=== PATIENT | female | born 1990 | race Caucasian/White ===

== ENCOUNTER 2022-10-16 06:52 | Outpatient (CLI) | payer OTHER, SELFPAY ==
[2022-10-16] VITALS (7 sets, daily range): BP systolic 111–132; BP diastolic 82–93; PULSE 93–120; RESP 16–21; TEMP 36.7–37.1; O2SAT 95–99; BMI 49.6
--- NOTE | 2022-10-16 07:00 | XACV_ITS ---
Exam Room: 2 Ht: 165 cm Wt: 135 kg BSA: 2.57 m2 Gender: Female : 1990 Exam Priority: Routine Procedure(s): Procedure Description: Diagnostic procedure Diagnostic Cath Status: Elective Diagnostic Findings * 32-year-old woman with nuclear stress test showing modest ischemia in anterior wall. She is here for coronary angiogram for further risk stratification. * No disease noted in the Left Main, Left Anterior Descending, Ramus intermedius, Right, or Circumflex coronary arteries. * Coronary angiography shows co dominance. Conclusions 1. No disease noted in the Left Main, Left Anterior Descending, Ramus intermedius, Right, or Circumflex coronary arteries. Recommendations * Continue current medical management and risk factor modification. Left Ventriculography Findings: * Left Ventriculogram not performed to minimize contrast use. Pressures Phase:Rest AO : 118 / 93 ( 104 ) @ 9:58:00 AM 96 / 84 ( 90 ) @ 10:01:00 AM 104 / 92 ( 99 ) @ 10:05:00 AM Clinical Evaluation EBL: 5mL-10mL Procedural Details Procedure Consent Obtained. Admit Source: Out Patient. Pre-Procedure Time Out. Identified patient by full name and date of as verbalized by the patient/guarantor. Does the consent match the physician's order: Yes. Accurate & Complete Informed Consent: Yes. Inpatient/Outpatient History & Physical on Chart: Yes. If H&P is completed, is and addenduem needed: No; If yes, is the addendum complete: N/A. Visualize and Verify Site with Patient/Guarantor: N/A. Relevant Radiology Images available: Yes. The risks, benefits, and alternatives of sedation and/or procedure were discussed by physician. The patient agrees to continue. Baseline sample Acquired. HR: 131 BPM. Procedure started. [facility] Clinical Fraility Score: 3: Managing Well. Shirt Folder Indications: Worsening Angina. Chest Pain Symptom Assessment: Atypical Angina. Correct patient, site and procedure confirmed by cath team. Current diagnosis: Chest Pain. PERRLA. Strong, equal hand .net programmer bilaterally. Lungs clear x 5 lobes. IV Site on Arrival: 20 gauge in the left anticubital. IV Fluids: 0.9% NaCl at KVO. 0 mL infused prior to chemical laboratory assistant. Pre Procedural Pulses: bilateral radial was 3+. Pre Procedural Pulses: bilateral posterior tibial was 3+. Pre Procedural Pulses: bilateral dorsalis pedis was 3+. Oxygen started at 2liters/min via nasal canula. right groin was prepped with chloroprep then draped in the usual sterile fashion. right groin was prepped with chloroprep then draped in the usual sterile fashion. Physician notified. Baseline sample Acquired. HR: 119 BPM. Baseline sample Acquired. HR: 122 BPM. Physician arrived. Physician scrubbed in. Immediate Pre-Procedure Time Out. Correct Patient: Yes; Correct Procedure: Yes; Correct Site: Yes; Correct Patient Position: Yes; Correct Supplies: Yes; Dried Flammable Prep: Yes; Blood Products Available: N/A;. Lidocaine 1% infiltrated to the right radial. An attempt to gain access to the right radial artery was unsuccessful. Manual pressure was held as needed to stop the bleeding. Arterial access obtained. A 5 telugu TIG catheter in over wire. Multiple views taken of left coronary artery. Catheter redirected to the RCA. Multiple views taken of right coronary artery. Catheter removed over the exchange wire. A TR Band was successful obtaining hemostatsis at the Right Radial artery insertion site. Physician scrubbed out. Physician review of cine films. Post Procedure: Pulses reassessed and unchanged. PERRLA. Strong, equal hand .net programmer bilaterally. Fluoro Time (Diagnostic) : 785:53 min. Estimated blood loss: 5mL-10mL. Responsiveness - Normal response to verbal stimuli; alert and oriented, PERRLA. Airway - Unaffected, no intervention required; spontaneous ventilation. Circulation: W/N/L, pulses unchanged. Nausea/Vomiting: No. Procedure completed. Patient transferred by wheelchair to CPRU. Vital chart was stopped. Access Site Site: Right Radial artery Sheath Size: 6 Fr Hemostasis Method: TR Band Hemostasis Success: Successful Procedure Medications Start: 8:41 AM Stop: 8:41 AM Medication: Versed Amount: 1 mg Route: I.V. Start: 8:42 AM Stop: 8:42 AM Medication: Fentanyl Amount: 50 mcg Route: I.V. Start: 8:45 AM Stop: 8:45 AM Medication: Versed Amount: 1 mg Route: I.V. Start: 8:46 AM Stop: 8:46 AM Medication: Fentanyl Amount: 25 mcg Route: I.V. Start: 8:48 AM Stop: 8:48 AM Medication: Versed Amount: 1 mg Route: I.V. Start: 8:52 AM Stop: 8:52 AM Medication: Versed Amount: 1 mg Route: I.V. Start: 8:53 AM Stop: 8:53 AM Medication: Fentanyl Amount: 25 mcg Route: I.V. Start: 8:54 AM Stop: 8:54 AM Medication: Nitrogylcerin Amount: 50 mcg Route: S.Q. Start: 8:56 AM Stop: 8:56 AM Medication: Nitrogylcerin Amount: 200 mcg Route: I.A. Start: 8:59 AM Stop: 8:59 AM Medication: Heparin Amount: 5000 units Route: I.V. Start: 9:03 AM Stop: 9:03 AM Medication: Nitrogylcerin Amount: 200 mcg Route: I.A. Start: 9:04 AM Stop: 9:04 AM Medication: Versed Amount: 1 mg Route: I.V. I, the attending physician, have reviewed and verified all procedure medications. Yes, all medications given per verbal order History/Risk Factors Hypertension: No Dyslipidemia: No Peripheral Arterial Disease (PAD): No Myocardial Infarction (MO): No Obesity: Yes Renal Disease: No Tobacco Use: Never Prior Interventions PCI: No CABG: No Valve Surgery: No Report Signatures Finalized by Adriana Putnam MD on 10/20/2022 05:24 PM
[2022-10-16] MEDS: diphenhydrAMINE 50 mg Capsule PO (07:46)
[2022-10-16 07:49] LABS: Basophils % 0.4 %; Eosinophils # 0.1 10^3/uL (0.0-0.8); Eosinophils % 0.6 %; Hematocrit 39.7 % (37.0-47.0); Hemoglobin 13.3 g/dL (11.5-15.3); Lymphocytes # 1.7 10^3/uL (0.8-4.8); Lymphocytes % 19.9 %; Mean Corpuscular HGB Conc 33.5 g/dL (30.0-36.0); Mean Corpuscular Hemoglobin 29.8 pg (28.0-34.0); Mean Platelet Volume 10.1 fL (7.4-10.4); Monocytes # 0.6 10^3/uL (0.2-0.9); Monocytes % 7.3 %; Neutrophils # 6.01 10^3/uL (1.8-7.7); Neutrophils % 71.6 %; Nucleated Red Blood Cells % 0 %; Platelet Count 224 10^3/cmm (130-400); Red Blood Count 4.46 10^6/uL (4.1-5.3); Red Cell Distribution Width 12.4 % (12.1-15.1); White Blood Count 8.4 10^3/uL (4.0-10.0)
[2022-10-16 08:05] LABS: Anion Gap 16.5 (5-19); Blood Urea Nitrogen 16 mg/dL (6-20); Calcium 9.6 mg/dL (8.5-10.5); Carbon Dioxide 23 mmol/L (22-29); Chloride 101 mmol/L (98-107); Glomerular Filtration Rate 117.4 mL/min (90-130); Glucose 98 mg/dL (65-115); Osmolality Calculated 285 mOsm/kg (285-295); Potassium 3.5 mmol/L (3.5-5.1); Sodium 137 mmol/L (136-145)
[2022-10-16 08:06] LABS: HCG, Serum Qual Negative (Negative)
--- NOTE | 2022-10-16 08:39 | P.HPUD_ITS ---
Surgery/Procedure H&P Update DATE OF PROCEDURE: October 16, 2022 DATE H&P PERFORMED: 09/25/22 H&P UPDATE INFORMATION: I have reviewed H&P completed within last 30 days, I have examined patient prior to procedure and No changes to prior documentation PREOP DIAGNOSIS: Chest pain, abnormal stress test PRIMARY INDICATION FOR PROCEDURE: Chest pain, abnormal stress test PLANNED PROCEDURE: Operation Date: 10/16/22 08:30 Proposed Procedures p [facility] w/wo [id number], R94.39,R07.9,R06.02(Left) - Adriana Putnam MD PATIENT REASSESSED PRIOR TO SEDATION, WITH NO CHANGE NOTED: Yes PHYSICAL EXAM: alert, oriented x 3 and regular rate & rhythm AIRWAY EVAL/ANESTHESIA PLAN: normal airway, ASA III, Monitored Anesthesia, Local Anesthesia, Risks, benefits & alternatives of sedation and/or procedure discussed and Patient agrees to continue as planned
--- NOTE | 2022-10-16 10:06 | SUR.PHASEII ---
wrist pain Radial assessed. No visual hematoma noted at this time, but patient c/o pain 6/10 above wrist placement. The band does not show any s/s of active bleeding. Verbal post cath instruction went over with the patient/family and they understand. Patient requesting tylenol at this time. MD notified of findings agreeable with tylenol administation. Given as ordered from prn list. will reassess.
[2022-10-16] MEDS: acetaminophen 325 mg Tablet 650 MG PO (10:08)
--- NOTE | 2022-10-16 10:15 | SUR.PHASEII ---
FLOOR TRANSFER Patient transferred via bed to [facility]- 112-1 for extended recovery. She was complaining of right arm pain that continues to persist despite medication treatement. Discussed with Dr Putnam and [facility] staff and decision made to treat band removal as an intervention and wait another hour before removal process. The patient's discomfort is causing anxiety and making her move and flex her right hand which could cause an issue during band removal. Patient and family encouraged to give medication time to work and to stop flexing the right wrist and that could cause a hematoma. They understood well and are on board with pain control before band removal process. Dr Putnam aware and is to come reassess the site to determine further course of action. Transferred via wheelchair. Condition guarded and stable. No hematoma noted at this time.
[2022-10-16] MEDS: sodium chloride 0.9% 1,000 ML 100 ML IV (11:54)
[2022-10-16] MEDS: fentaNYL 50 mcg/mL INJ 2mL IVP (12:10)
== END 2022-10-16 15:35 | disposition home or self-care (01) ==
LOC: CCL 09:14 → CSU 12:01
PROVIDERS: Visit Provider Internal Medicine Cardiovascular Disease
DX: R07.9 Chest pain, unspecified (principal); R94.39 Abnormal result of other cardiovascular function study; E66.9 Obesity, unspecified; Z68.42 Body mass index [BMI] 45.0-49.9, adult
CPT/HCPCS: 36415; 80048; 84703; 85025; 93454; 96361; 96365; 99152; 99153; C1769; C1887; C1894; G0378; J1644; J2250; J3010; J3490; J7030; Q0163; Q9967